=== PATIENT | female | born 1985 | race Caucasian/White ===

== ENCOUNTER 2019-11-23 11:02 | Day surgery (SDC) | payer OTHER ==
[~2019-11-23] VITALS: Ht 157.5 cm; Wt 99.6 kg
[~2019-11-23 11:02] MED LIST: AMOX500 PO; AMOX875 PO; BIRTH CONTROL; CYCL10 PO; DIPH25 PO; Esgic Tablet1 EACH PO; FAMO20 PO; HYDACE5 PO; HYDR1TAB94 PO; IBUP200; IBUP600 PO; IBUP800 PO; MEDR10 PO; MEDR150I IM; MONT10T PO; Monodox100 MG PO; Norco 5-325 Ta1 EACH PO; ORACON PO; OXYACE5T PO; PENVK500 PO; PRED10 PO; PROC10 PO; PROM25 PO; PSEU120ER PO; RANI150 PO; RXHYDACE PO; SULI150 PO; SULTRIDS PO; TRAM50 PO; Ventolin/Prove6.7 GM INH; Zofran4 MG PO
--- NOTE | 2019-11-23 15:13 | NUR ---
LATE ENTRY: Ambulatory in Day Surgery. History, Chart, Medications and Allergies reviewed before start of procedure. Lungs clear T/O to Auscultation. Patient confirms NPO status and agrees with scheduled surgery. Pre-Op teaching done. Pt verbalizes understanding.
--- NOTE | 2019-11-23 16:09 | NUR ---
11/23/19 1609 Latrice Crespo ALL COUNTS CORRECT.
--- NOTE | 2019-11-23 18:41 | NUR ---
Patient up to Ambulate independently. Gait steady. Dressing to procedure site clean, dry, intact with no visible drainage, swelling, erythema or bruising noted. Discharge instructions reviewed with patient. Patient verbalizes understanding. Copy given to patient to take home. Patient States Post-Procedure ride home has been arranged. Discharged via wheelchair to private car for ride home.
== END 2019-11-23 18:41 | disposition home or self-care (01) ==
LOC: ORSCMMR 11:02 → EDSTATUS 12:45 → ORSCMMR 18:41
PROVIDERS: Obstetrics & Gynecology
PROC: 0UT64ZZ Resection of Left Fallopian Tube, Percutaneous Endoscopic Approach (ICD-10-PCS; principal; 2019-11-23 12:45)
PROC: 10T24ZZ Resection of Products of Conception, Ectopic, Percutaneous Endoscopic Approach (ICD-10-PCS; principal; 2019-11-23 12:45)
DX: O00.102 Left tubal pregnancy without intrauterine pregnancy (principal); E66.01 Morbid (severe) obesity due to excess calories; Z68.41 Body mass index [BMI] 40.0-44.9, adult
CPT/HCPCS: 36415; 86850; 86900; 86901; 88305; A9270-GY; J1100; J1885; J2250; J2405; J2704; J2710; J3010; J7120

== ENCOUNTER 2020-02-12 00:42 | Emergency (ER) | payer OTHER ==
[~2020-02-12] VITALS: Ht 157.5 cm; Wt 99.8 kg
[2020-02-12 01:31] LABS: BASOPHILS ABSOLUTE AUTO 0.08 K/mm3 (0.00-0.23); BASOPHILS PERCENT AUTO 0 % (0-2); EOSINOPHILS ABSOLUTE AUTO 0.03 K/mm3 (0.00-0.68); EOSINOPHILS PERCENT AUTO 0 % (0-6); Hematocrit 41.5 % (33.0-51.0); Hemoglobin 13.7 g/dL (11.5-16.0); IMMATURE GRAN PERCENT AUTO 1 % (0-1); LYMPHOCYTES ABSOLUTE AUTO 1.87 K/mm3 (0.84-5.20); LYMPHOCYTES PERCENT AUTO 9 % (21-46); MONOCYTES PERCENT AUTO 5 % (4-13); Mean Corpuscular HGB 29.8 pg (26.0-34.0); Mean Corpuscular Volume 90 fL (80-100); NEUTROPHILS ABSOLUTE AUTO 17.37 K/mm3 (1.96-9.15); NEUTROPHILS PERCENT AUTO 85 % (41-73); Platelet Count 395 K/mm3 (150-400); RDW Coefficient Variation 12.7 % (11.7-14.2); RDW Standard Deviation 41.8 fL (35.1-46.3); Red Blood Cell Count 4.59 M/mm3 (3.80-5.20); White Blood Cell Count 20.55 K/mm3 (4.00-11.30)
[2020-02-12] MEDS ORDERED: IBUP600 PO (02:49)
== END 2020-02-12 03:07 | disposition home or self-care (01) ==
LOC: ER 00:42
PROVIDERS: Emergency Medicine
DX: R10.30 Lower abdominal pain, unspecified (principal); V49.9XXA Car occupant (driver) (passenger) injured in unspecified traffic accident, initial encounter
CPT/HCPCS: 74177; 84703; 85025; 96374-59; 99284-25; J1885; Q9967

== ENCOUNTER 2021-10-17 12:04 | Emergency (ER) | payer OTHER ==
[~2021-10-17] VITALS: Ht 157.5 cm; Wt 90.7 kg
== END 2021-10-17 13:28 | disposition home or self-care (01) ==
LOC: ER 12:04
DX: U07.1 COVID-19 (principal)
CPT/HCPCS: 99282

== ENCOUNTER 2023-08-15 04:55 | Emergency (ER) | payer OTHER ==
[~2023-08-15] VITALS: Ht 157.5 cm; Wt 99.8 kg
[2023-08-15 05:29] VITALS: BP 185/105
[2023-08-15] MEDS ORDERED: OXYC5 PO (07:26)
== END 2023-08-15 07:50 | disposition home or self-care (01) ==
LOC: ER 04:55
DX: K08.89 Other specified disorders of teeth and supporting structures (principal)
CPT/HCPCS: 96372; 99282-25; A9270; J1885

== ENCOUNTER 2024-05-26 07:55 | Emergency (ER) | payer OTHER ==
[~2024-05-26] VITALS: Ht 157.5 cm; Wt 99.8 kg
[~2024-05-26 07:55] MED LIST changes: +OXYC5 PO
[2024-05-26] MEDS ORDERED: Ketorolac Tromethamine 30mg Vial IV ONE (08:25)
[2024-05-26 08:38] LABS: BASOPHILS ABSOLUTE AUTO 0.03 K/mm3 (0.00-0.23); BASOPHILS PERCENT AUTO 0 % (0-2); EOSINOPHILS ABSOLUTE AUTO 0.12 K/mm3 (0.00-0.68); EOSINOPHILS PERCENT AUTO 2 % (0-6); Hematocrit 37.3 % (33.0-51.0); Hemoglobin 12.1 g/dL (11.5-16.0); IMMATURE GRAN ABSOLUTE AUTO 0.03 K/mm3 (0.00-0.10); IMMATURE GRAN PERCENT AUTO 0 % (0-1); LYMPHOCYTES ABSOLUTE AUTO 1.44 K/mm3 (0.84-5.20); LYMPHOCYTES PERCENT AUTO 20 % (21-46); MONOCYTES PERCENT AUTO 7 % (4-13); Mean Corpuscular HGB 28.3 pg (26.0-34.0); Mean Corpuscular HGB Conc 32.4 g/dL (31.5-36.5); Mean Corpuscular Volume 87 fL (80-100); Mean Platelet Volume 9.8 fL (9.1-12.4); NEUTROPHILS ABSOLUTE AUTO 4.93 K/mm3 (1.96-9.15); NEUTROPHILS PERCENT AUTO 70 % (41-73); Platelet Count 326 K/mm3 (150-400); RDW Coefficient Variation 13.8 % (11.7-14.2); RDW Standard Deviation 43.7 fL (35.1-46.3); Red Blood Cell Count 4.28 M/mm3 (3.80-5.20); White Blood Cell Count 7.05 K/mm3 (4.00-11.30)
[2024-05-26] MEDS ORDERED: Ondansetron HCl 2 MG / ML 2ML Vial IV ONE (08:40)
[2024-05-26 09:02] LABS: Albumin, Blood 3.6 g/dL (3.4-5.0); Albumin/Globulin Ratio 0.9 (0.8-1.8); Bilirubin, Total 0.4 mg/dL (0.1-1.0); Bun/Creatinine Ratio 17.3 (12.0-20.0); Calcium, Blood 9.4 mg/dL (8.5-10.1); Creatinine, Blood 0.64 mg/dL (0.40-1.00); Total Protein, Blood 7.6 g/dL (6.4-8.2)
[2024-05-26 10:36] LABS: International Normalized Ratio 1.01; Prothrombin Time Results 10.8 Sec (9.7-11.5)
[2024-05-26 11:08] VITALS: BP 150/90
== END 2024-05-26 11:08 | disposition home or self-care (01) ==
LOC: ER 07:55
PROVIDERS: Student in an Organized Health Care Education/Training Program
DX: N94.6 Dysmenorrhea, unspecified (principal); R25.2 Cramp and spasm
CPT/HCPCS: 76830; 76856; 80053; 84703; 85025; 85610; 85730; 86900; 86901; 96374; 96375; 99284-25; J1885; J2405